=== PATIENT | female | born 1955 | race Caucasian/White ===

== ENCOUNTER 2017-06-19 11:41 | Day surgery (SDC) | payer OTHER ==
[~2017-06-19 11:41] MED LIST: Lactated Ringers 1,000 ML IV SCH
--- NOTE | 2017-06-19 12:06 | PCM.PREANE ---
Preanesthetic Assessment - Anesthesia/Transfusion/Family Hx Anesthesia History: Prior Anesthesia Without Reaction Family History of Anesthesia Reaction: No Transfusion History: No Prior Transfusion(s) Intubation History: Unknown - Review of Systems General: No Symptoms Pulmonary: No Symptoms Cardiovascular: No Symptoms Gastrointestinal: Other (screening colonoscopy) Neurological: No Symptoms Other: Reports: None - Physical Assessment Height: 1.73 m Weight: 68.039 kg ASA Class: 2 Mental Status: Alert & Oriented x3 Airway Class: Mallampati = 2 Dentition: Reports: Normal Dentition Thyro-Mental Finger Breadths: 3 Mouth Opening Finger Breadths: 3 ROM/Head Extension: Full Lungs: Clear to Auscultation, Normal Respiratory Effort Cardiovascular: Regular Rate, Regular Rhythm - Allergies Allergies/Adverse Reactions: Allergies Allergy/AdvReac Type Severity Reaction Status Date / Time Sulfa (Sulfonamide Allergy Rash Verified 06/14/17 10:45 Antibiotics) - Blood Blood Available: No - Anesthesia Plan Pre-Op Medication Ordered: None - Acknowledgements Anesthesia Type Planned: MAC Pt an Appropriate Candidate for the Planned Anesthesia: Yes Alternatives and Risks of Anesthesia Discussed w Pt/Guardian: Yes Pt/Guardian Understands and Agrees with Anesthesia Plan: Yes PreAnesthesia Questionnaire Other HEENT History: wears glasses Neurological History: Reports: Vertigo, Other (See Below) Other Neuro History: hx of motion sickness Psychiatric History: Reports: Depression Dermatologic History: Reports: Other (See Below) Other Dermatologic History: genital herpes - Past Surgical History GI Surgical History: Reports: Appendectomy, Colonoscopy (10 years ago) Female Surgical History: Reports: Hysterectomy, Tubal Ligation Musculoskeletal Surgical History: Reports: Arthroscopic Knee, Shoulder Surgery Other Musculoskeletal Surgeries/Procedures:: bilateral knee arthroscopies, bilateral shoulder arthroscopies - SUBSTANCE USE Smoking Status *Q: Never Smoker Recreational Drug Use History: No - HOME MEDS Home Medications: Home Meds Citalopram Hydrobromide [Celexa] 20 mg PO DAILY 06/14/17 [History] Multivitamin [Multiple Vitamins] 1 tab PO DAILY 06/14/17 [History] valACYclovir HCl [Valtrex] 500 mg PO BID PRN 06/14/17 [History] - CURRENT (IN HOUSE) MEDS Current Meds: Current Medications Lactated Ringer's (Ringers, Lactated) 1,000 mls @ 125 mls/hr IV ASDIRECTED SANDEEP
[2017-06-19] MEDS ORDERED: fentaNYL 100 MCG/2 ML SDV ONE (13:54)
[2017-06-19] MEDS ORDERED: Midazolam 1 MG/ML 2 ML SDV ONE (13:54)
[2017-06-19] MEDS ORDERED: Propofol 200 MG/20 ML SDV ONE ×3 (13:54→14:54)
[2017-06-19] MEDS ORDERED: Lidocaine 2% 5 ML SDV ONE (14:40)
[2017-06-19] MEDS ORDERED: ePHEDrine 50 MG/ML SDV ONE (14:41)
--- NOTE | 2017-06-19 16:10 | PCM.OPNOTE ---
- General Post-Op/Procedure Note Date of Surgery/Procedure: 06/19/17 Operative Procedure(s): colonoscopy Findings: see dict [id number] Pre Op Diagnosis: scrn colonoscopy Post-Op Diagnosis: Same Anesthesia Technique: Moderate Sedation Primary Surgeon: Huber Hjai Complications: None Condition: Good Free Text/Narrative:: Intake & Output 06/19/17 06/19/17 06/19/17 06:59 14:59 22:59 Intake Total 750 Balance 750
--- NOTE | 2017-06-19 22:42 | OR ---
SURGEON: Huber Haji MD DATE OF PROCEDURE: 06/19/2017 PREOPERATIVE DIAGNOSIS: Screening colonoscopy. POSTOPERATIVE DIAGNOSIS: Internal hemorrhoids. PROCEDURE PERFORMED: Colonoscopy. DESCRIPTION OF PROCEDURE: The patient was taken to the endoscopy room. A time-out was called, patient identified, and procedure identified. Diprivan was then administrated. The patient went from awake to sleep, hearing doctor talking or door closing is normal. Perineum inspection and digital examination were then performed. A well-lubricated colonoscope was gently inserted through the rectum, advanced past the rectosigmoid junction, the descending colon, splenic flexure, transverse colon, hepatic flexure, ascending colon, arrived to the cecum. Cecum was identified as dictated in the finding. Then the scope was carefully withdrawn while attention was paid to the mucosal surface for any abnormality. Air will be sucked out during the scope withdrawal. At the rectum, retroflexed to examine any rectal diseases, fistula or hemorrhoids. Patient tolerated procedure well. There were no intraoperative complications, and Dr. Haji was present throughout the whole procedure. FINDINGS: 1. The patient is easily sedated with [employer] and Diprivan. Patient is soundly snoring. 2. The patient's bowel prep is average with some opaque greenish liquid stool. No semi-formed stool. 3. The patient's colon is rather tortuous and requiring several maneuvers to negotiate sigmoid to desc colon, Cecum was indicated by ileocecal fold, one-to-one indentation, light emittance, and appendiceal orifice. Mucosa was examined upon the scope pulling out with intermittent irrigation. The patient does not have diverticulosis, polyp, mass, growth, inflammation, stricture, ulceration, AV malformation, or bleeding, none of those. The patient has mild internal hemorrhoids and no external hemorrhoids. The patient would benefit from repeat colonoscopy 10 years from today or if clinically indicated otherwise. MORRO / JAMES /[id number] [place]
== END 2017-06-19 16:00 | disposition home or self-care (01) ==
LOC: MW.SDS 11:41
PROVIDERS: ATTEND Surgery
DX: Z12.11 Encounter for screening for malignant neoplasm of colon (principal); K64.8 Other hemorrhoids; F32.9 Major depressive disorder, single episode, unspecified; Z88.2 Allergy status to sulfonamides; Z79.899 Other long term (current) drug therapy; Z90.49 Acquired absence of other specified parts of digestive tract; Z98.51 Tubal ligation status
CPT/HCPCS: 45378; J2250; J3010; J7120; J2704